=== PATIENT | male | born 1990 | race African-American/Black ===

== ENCOUNTER 2018-07-03 19:10 | Inpatient (IN) ==
[2018-07-03] MEDS ORDERED: fentaNYL 100 MCG/2 ML VIAL IV STA ×2 (20:34→23:04)
[2018-07-03] MEDS ORDERED: ONDANSETRON 4 MG/2 ML VIAL IV STA (20:34)
[2018-07-03] MEDS ORDERED: ALBUTEROL/IPRATROPIUM 3 ML NEB RESP TX STA (20:34)
[2018-07-03] MEDS ORDERED: SODIUM CHLORIDE 0.9% 1,000 ML IV STA (20:34)
[2018-07-03 21:12] LABS: Basophils % 0.3 % (0.0-0.8); Eosinophils # 0.3 10*3/uL (0.0-0.87); Eosinophils % 2.4 % (0.00-10.9); Hematocrit 28.4 VOL% (42.0-52.0); Hemoglobin 8.9 GM/DL (14.0-18.0); Immature Granulocytes % 0.6 %; Immature Granulocytes Absolute 0.07 #; Lymphocytes # 4.6 10*3/uL (1.4-4.0); Lymphocytes % 41.1 % (21.2-54.2); Mean Corpuscular HGB Conc 31.3 GM/DL (32-36); Mean Corpuscular Hemoglobin 24 PG (27-34); Mean Corpuscular Volume 75.9 FL (87-102); Mean Platelet Volume 10.8 FL (9.6-12.0); NRBC # 0.54 10*3/uL; Neutrophils # 5.2 10*3/uL (1.4-7.4); Neutrophils % 46.6 % (38.7-73.9); Platelet Count 248 T/CUMM (130-400); Red Blood Count 3.74 MC/CUMM (3.8-5.5); White Blood Count 11.1 T/CUMM (4-12)
[2018-07-03 21:21] LABS: INR 1.1; PT Patient Result 11.6 SECS
[2018-07-03 21:26] LABS: Apearance,Urine CLEAR (Clear); Bilirubin,Urine Negative (Negative); Blood, Urine Negative (Negative); Glucose,Urine (UA) Negative (Negative); Ketones,Urine Negative (Negative); Mucus,Urine Few /LPF (Occasional); Nitrite,Urine Negative (Negative); Protein,Urine Negative; RBC,Urine 1 /HPF (0-4); Urine Color Yellow (Yellow); Urine Specific Gravity 1.009 (1.001-1.035); WBC,Urine 1 /HPF (0-6)
[2018-07-03 21:37] LABS: Poikilocytosis 1+
[2018-07-03 21:38] LABS: Polychromasia 1+
[2018-07-03 21:39] LABS: Hypochromasia 1+; Microcytosis 1+; Platelet Estimate Adequate; Target Cells Few; Tear Drop Cells Few
[2018-07-03 21:41] LABS: Sickle Cells Few
[2018-07-03 22:32] LABS: Barbiturates Screen,Urine Negative (Negative); Benzodiazepines Screen,Urine Negative (Negative); Cannabinoid Screen,Urine Negative (Negative); Opiate Screen,Urine Negative (Negative); Phencyclidine Screen,Urine Negative (Negative)
[2018-07-03 23:03] LABS: Bilirubin,Total 2.9 MG/DL (0.2-1.0); Calcium 8.2 MG/DL (8.5-10.1); Osmolality,Calculated 277.3 MOS/KG (273-304); Potassium 3.6 MMOL/L (3.5-5.1)
[2018-07-03] MEDS ORDERED: fentaNYL 100 MCG/2 ML VIAL IM STA (23:04)
[2018-07-03 23:32] LABS: Troponin I < 0.015 NG/ML (0.00-0.045)
[2018-07-03] MEDS ORDERED: NICOTINE 21 MG/24 HR PATCH TRANSDERM PRN (23:36)
[2018-07-03] MEDS ORDERED: BISACODYL 5 MG TABLET PO PRN (23:36)
[2018-07-03] MEDS ORDERED: ONDANSETRON 4 MG/2 ML VIAL IV PRN (23:36)
[2018-07-03] MEDS ORDERED: PROMETHAZINE 25 MG/1 ML VIAL IM PRN (23:36)
[2018-07-03] MEDS ORDERED: traZODone 50 MG TABLET PO PRN (23:36)
[2018-07-03] MEDS ORDERED: ACETAMINOPHEN 325 MG TABLET PO PRN (23:36)
[2018-07-03] MEDS ORDERED: diphenhydrAMINE CAP 25 MG CAPSULE PO PRN (23:36)
[2018-07-03] MEDS ORDERED: MORPHINE 4 MG/1 ML VIAL IV PRN (23:36)
[2018-07-04 00:05] LABS: Bilirubin,Direct 0.37 MG/DL (0.0-0.20); Bilirubin,Indirect 2.1 MG/DL (0.0-1.0); Bilirubin,Total 2.5 MG/DL (0.2-1.0)
[2018-07-04 00:06] LABS: Risk Ratio 2.96; VLDL CHOLESTEROL 14.4 MG/DL
[2018-07-04] MEDS: SODIUM CHLORIDE 0.9% 1,000 ML IV SCH ×2 (00:30→08:10)
[2018-07-04 00:52] LABS: Hepatitis A Ab IgM Quant 0.14 Index; Hepatitis A Ab IgM Result Negative (Negative); Hepatitis B Core IgM Quant 0.13 Index; Hepatitis B Core IgM Result Negative (Negative); Hepatitis B Surface Ag Quant < 0.10 Index; Hepatitis B Surface Ag Result Negative (Negative); Hepatitis C Virus Ab Quant 0.06 Index; Hepatitis C Virus Ab Result Negative (Negative)
[2018-07-04] MEDS: MORPHINE 4 MG/1 ML VIAL IV PRN ×2 (08:07→12:06)
[2018-07-04 08:19] LABS: Basophils % 0.3 % (0.0-0.8); Eosinophils # 0.3 10*3/uL (0.0-0.87); Eosinophils % 3.1 % (0.00-10.9); Hematocrit 23.9 VOL% (42.0-52.0); Immature Granulocytes % 0.4 %; Immature Granulocytes Absolute 0.04 #; Lymphocytes # 4.3 10*3/uL (1.4-4.0); Lymphocytes % 44.6 % (21.2-54.2); Mean Corpuscular HGB Conc 33.5 GM/DL (32-36); Mean Corpuscular Hemoglobin 25 PG (27-34); Mean Corpuscular Volume 75.4 FL (87-102); Mean Platelet Volume 10.5 FL (9.6-12.0); Monocytes # 0.9 10*3/uL (0.11-0.8); Monocytes % 9.5 % (1.7-12.7); NRBC # 0.44 10*3/uL; Neutrophils % 42.1 % (38.7-73.9); Platelet Count 214 T/CUMM (130-400); Red Blood Count 3.17 MC/CUMM (3.8-5.5); Red Cell Distribution Width 16.9 % (9.3-17.3); White Blood Count 9.6 T/CUMM (4-12)
[2018-07-04 08:31] LABS: Albumin 3.1 G/DL (3.4-5.0); Bilirubin,Total 2.4 MG/DL (0.2-1.0); Osmolality,Calculated 275.4 MOS/KG (273-304); Total Protein 6.5 G/DL (6.4-8.3)
[2018-07-04] MEDS ORDERED: PANTOPRAZOLE 40 MG TABLET PO SCH (09:00)
[2018-07-04] MEDS ORDERED: POTASSIUM CHLORIDE 20 MEQ TABLET PO PRN (10:42)
[2018-07-04] MEDS ORDERED: POTASSIUM CHLORIDE 20 MEQ TABLET PO ONE (11:44)
[2018-07-04 13:02] VITALS: BP 110/62
== END 2018-07-04 12:47 | disposition home or self-care (01) | DRG 812 ==
LOC: N.ED 19:10 → N.EDINP 23:26 → SUATTDRO 23:26 → N.4E 07-04 01:50
PROVIDERS: ADMIT Internal Medicine; ATTEND Internal Medicine